=== PATIENT | male | born 1940 | race Caucasian/White ===

== ENCOUNTER → 2018-02-24 | Outpatient (CLI) | payer MEDICARE ==
[2018-02-24] MEDS: REGADENOSON 0.4 MG/5 ML DISP.SYRIN. IV (10:20)
== END | disposition home or self-care (01) ==
LOC: NM 11:11
DX: I25.89 Other forms of chronic ischemic heart disease (principal); I27.20 Pulmonary hypertension, unspecified; I07.1 Rheumatic tricuspid insufficiency
CPT/HCPCS: 78452; 93017; 93306; 96374; 96375; 96376; A9500; J2785

== ENCOUNTER → 2018-10-03 | Outpatient (CLI) | payer MEDICARE ==
--- NOTE | 2018-10-03 10:01 | KCIC ---
MR of the right shoulder TECHNIQUE: Routine multiplanar sequences are obtained. HISTORY: Right shoulder pain for one year. TECHNIQUE: Routine multiplanar sequences are obtained. FINDINGS: There is a full-thickness tear of the anterior supraspinatus tendon measuring about 15 mm AP diameter and 1 cm retraction. More generalized rotator cuff tendinosis. Partial subscapularis tendon tear. Mild rotator cuff muscle atrophy. Small subdeltoid bursal effusion. Evaluation of the labrum is limited due to motion degradation. Signal at and irregularity of the superior labrum compatible with degeneration or tear. Mild posterior labral tear. Biceps tendinosis with partial tearing. No acute fracture. No aggressive bone destruction. IMPRESSION: 1. Small full-thickness rotator cuff tear of the anterior supraspinatus tendon. Partial subscapularis tendon tear. 2. Biceps tendinosis with partial tear. 3. Limited labral evaluation due to motion, but there is evidence of degeneration/tearing of the posterior through superior labrum. Electronically signed by: Yifan Jackson MD (10/03/2018 9:58 AM) [facility]
== END | disposition home or self-care (01) ==
LOC: KCIC MRI 09-19 13:04
PROVIDERS: ATTEND Orthopaedic Surgery Sports Medicine
DX: M75.101 Unspecified rotator cuff tear or rupture of right shoulder, not specified as traumatic (principal); M75.21 Bicipital tendinitis, right shoulder; M62.511 Muscle wasting and atrophy, not elsewhere classified, right shoulder
CPT/HCPCS: 73221

== ENCOUNTER → 2019-03-03 | Outpatient (CLI) | payer MEDICARE ==
--- NOTE | 2019-03-03 15:45 | CARD ---
MR#: [id number] Date of Study: 03/03/2019 Ordering Physician: RASHAWN HENRY, Referring Physician: RASHAWN HENRY, Tech: Masha Farley APPROVED REPORT EXAM: Two-dimensional and M-mode echocardiogram with Doppler and color Doppler. Other Information Quality : GoodHR: 58bpm Rhythm : NSR INDICATION CAD RISK FACTORS Hypertension 2D DIMENSIONS RVDd3.4 (2.9-3.5cm)Left Atrium(2D)3.3 (1.6-4.0cm) IVSd1.0 (0.7-1.1cm)Aortic Root(2D)3.6 (2.0-3.7cm) LVDd5.2 (3.9-5.9cm)LVOT Diameter2.1 (1.8-2.4cm) PWd1.1 (0.7-1.1cm)LVDs3.0 (2.5-4.0cm) FS (%) 41.7 %SV94.1 ml Aortic Valve AoV Peak Leonardo.118.8cm/sAoV VTI22.8cm AO Peak GR.5.6mmHgLVOT Peak Leonardo.96.2cm/s LVOT VTI 21.10cmAO Mean GR.3mmHg IVETH (VMAX)2.95wt4BQA (VTI)3.14cm2 Mitral Valve MV E Arilnnjo57.0cm/sMV DECEL CZSN572jv MV A Gtwqwrwc05.0cm/sMV PBV945sh E/A Ratio0.8MVA (PHT)2.00cm2 TDI E/Lateral E'11.3E/Medial E'14.0 Pulmonary Valve PV Peak Efsfbvaf83.1cm/sPV Peak Grad.3mmHg Tricuspid Valve TR P. Czvvvbma894ou/sRAP OQRJERVF9akIf TR Peak Gr.83uzLjRVKS91llOo Pulmonary Vein S1 Jtupxpjs77.3cm/sD2 Zowaxnav53.2cm/s PVa xmpyhcsw430krjn LEFT VENTRICLE The left ventricle is normal size. There is borderline concentric left ventricular hypertrophy. The l eft ventricular systolic function is normal and the ejection fraction is within normal range. The Eje ction Fraction is 55-60%. There is normal LV segmental wall motion. Transmitral Doppler flow pattern is Grade I-abnormal relaxation pattern. RIGHT VENTRICLE The right ventricle is normal size. There is normal right ventricular wall thickness. The right ventr icular systolic function is normal. ATRIA The left atrium size is normal. The right atrium size is normal. The atrial septum is aneurysmal. AORTIC VALVE The aortic valve is thickened but opens well. Doppler and Color Flow revealed no significant aortic r egurgitation. There is no significant aortic valvular stenosis. MITRAL VALVE The mitral valve is normal in structure and function. There is no evidence of mitral valve prolapse. There is no mitral valve stenosis. Doppler and Color-flow revealed trace to mild mitral regurgitation . TRICUSPID VALVE The tricuspid valve is normal in structure and function. Doppler and Color Flow revealed trace to mil d tricuspid regurgitation with an estimated PAP of 26 mmHg. There is no tricuspid valve stenosis. PULMONIC VALVE The pulmonic valve is not well visualized. Doppler and Color Flow revealed no pulmonic valvular regur gitation. GREAT VESSELS The aortic root is normal in size. The IVC was not well visualized. PERICARDIAL EFFUSION There is no evidence of significant pericardial effusion. Critical Notification Critical Value: No <Conclusion> The left ventricle is normal size. The left ventricular systolic function is normal and the ejection fraction is within normal range. The Ejection Fraction is 55-60%. There is borderline concentric left ventricular hypertrophy. There is no significant aortic valvular stenosis. Doppler and Color Flow revealed no significant aortic regurgitation. Doppler and Color-flow revealed trace to mild mitral regurgitation. Doppler and Color Flow revealed trace to mild tricuspid regurgitation with an estimated PAP of 26 mmH g. Signed by : Maciej Spears MD Electronically Approved : 03/03/2019 15:45:03
== END | disposition home or self-care (01) ==
LOC: ECHO 13:53
PROVIDERS: ATTEND Internal Medicine Cardiovascular Disease
DX: I08.1 Rheumatic disorders of both mitral and tricuspid valves (principal); I25.10 Atherosclerotic heart disease of native coronary artery without angina pectoris; I10 Essential (primary) hypertension
CPT/HCPCS: 93306

== ENCOUNTER → 2019-09-21 | Outpatient (CLI) | payer MEDICARE ==
[~2019-09-21] MED LIST: REGADENOSON 0.4 MG/5 ML DISP.SYRIN. IV ONE
--- NOTE | 2019-09-21 13:23 | RAD ---
MR#: [id number] Date of Study: 09/21/2019 Ordering Physician: RASHAWN HENRY, Referring Physician: DIONY RAMEY Tech: RONNIE Shipman, ARRT (R) (N) APPROVED REPORT Test Type: Pharmacological Stress Nurse/Tech: Efrain Jc RN Test Indications: CAD Cardiac History: Stents 10 yrs ago, HTN, See EMR. Medications: See EMR. Medical History: See EMR. Resting ECG: SR Resting Heart Rate: 60 bpm Resting Blood Pressure: 141/74mmHg Pretest Chest Pain: No chest pain Nurse/Tech Notes Lungs CTA, Heart tones regular. Consent: The procedure was explained to the patient in lay terms. Informed consent was witnessed. [place] eout was entered into [employer]. History and Stress Test performed by RT Selene (R) (N) Pharm. Details Pharmacologic stress testing was performed using 0.4mg per 5ml of regadenoson given intravenously ove r 7-10 seconds. Stress Symptoms No chest pain or symptoms. POST EXERCISE Reason for Termination: Infusion complete Max HR: 84 bpm Max Blood Pressure: 136/61mmHg Blood Pressure response to exercise: Normal blood pressure response during stress. Heart Rate response to exercise: WNL Chest Pain: No. Arrhythmia: No. ST Change: No. INTERPRETATION Stress EKG Conclusion: Baseline EKG showed sinus rhythm. No ischemic changes at peak stress. No arr hythmias. Imaging Protocol IMAGE PROTOCOL: Rest Tc-99m/stress Tc-99m 1 day Rest: Stress: Viability: Radiopharm.Tc99m WbwnbdmnxTx02z Sestamibi Vwtn95rEr 33mCi Img Date 09/21/2019 09/21/2019 Inj-Img Bgab21oyj. 60min. Rest Admin Site:IV - Right AntecubitalAdministrator:RT Selene (R)(N) Stress Admin Site: IV - Right AntecubitalAdministrator: RT Selene (R)(N) STRESS DATA End Diast. Vol.82.0mlAv. Heart Rate60.0bpm End Syst. Vol.22.0mlCO Index BSA3.6L/min Myocardial Loiv759.0gEject. Wzcmkipj99.0% Stress Rates Pk. Fill Rate2.43EDV/secLVtime Pk. Fill 294.38msec Pk. Empty Rate3.55ESV/secLVtime Pk. Rqyii158.21msec 1/3 Pk. Fill1.07EDV/sec Stress Scores Regional WT0.00Summed WT2.00 Regional WM0.00Summed WM1.00 Study quality was good. Left Ventricular size was Normal at Rest and Stress. Lung uptake was . Left Ventricular ejection fraction is 73%. The rest and stress images show normal perfusion, normal contraction and thickening. LV Perf. Quant 17 Seg. SSS0.00 17 Seg. SRS0.00 17 Seg. SDS0.00 Stress Defect Extent (% LAD)0.00Rest Defect Extent (% LAD)0.00Rev. Defect Extent (% LAD)0.00 Stress Defect Extent (% LCX) 0.00Rest Defect Extent (% LCX)0.00Rev. Defect Extent (% LCX)0.00 Stress Defect Extent (% RCA)0.00Rest Defect Extent (% RCA)0.00Rev. Defect Extent (% RCA)0.00 Stress Defect Extent (% SHAY)0.00Rest Defect Extent (% SHAY)0.00Rev. Defect Extent (% SHAY)0.00 Conclusion 1. Regadenoson cardioisotope stress test did not show any evidence of ischemia or infarct. 2. Normal left ventricular systolic function with ejection fraction calculated at 73%. 3. Low risk for cardiac events. Signed by : Rashawn Henry, Electronically Approved : 09/21/2019 13:22:35
== END | disposition home or self-care (01) ==
LOC: NM 09:12
PROVIDERS: ATTEND Internal Medicine Cardiovascular Disease
DX: I25.10 Atherosclerotic heart disease of native coronary artery without angina pectoris (principal); I10 Essential (primary) hypertension; Z95.5 Presence of coronary angioplasty implant and graft
CPT/HCPCS: 78452; 93017; A9500; J2785

== ENCOUNTER → 2020-04-04 | Outpatient (CLI) | payer MEDICARE ==
--- NOTE | 2020-04-05 09:08 | CARD ---
MR#: [id number] Date of Study: 04/04/2020 Ordering Physician: RASHAWN HENRY, Referring Physician: RASHAWN HENRY, Tech: Masha Farley APPROVED REPORT EXAM: Two-dimensional and M-mode echocardiogram with Doppler and color Doppler. Other Information Quality : AverageHR: 55bpm INDICATION Cardiac Disease: CAD RISK FACTORS Hypertension Hyperlipidemia Diabetes 2D DIMENSIONS RVDd3.9 (2.9-3.5cm)Left Atrium(2D)3.0 (1.6-4.0cm) IVSd1.1 (0.7-1.1cm)Aortic Root(2D)3.4 (2.0-3.7cm) LVDd4.5 (3.9-5.9cm)LVOT Diameter2.1 (1.8-2.4cm) PWd1.0 (0.7-1.1cm)LVDs2.9 (2.5-4.0cm) LVEF(%)59.0 (>50%) Aortic Valve AoV Peak Leonardo.119.5cm/sAoV VTI27.3cm AO Peak GR.5.7mmHgLVOT Peak Leonardo.89.0cm/s LVOT VTI 20.09cmAO Mean GR.3mmHg Mitral Valve MV E Panqqili04.4cm/sMV DECEL WIAF249ib MV A Xsiypsks24.5cm/sMV E Mean Gr.1mmHg MV TOI45ivT/A Ratio0.7 MVA (PHT)2.26cm2 TDI E/Lateral E'8.0E/Medial E'10.1 Pulmonary Valve PV Peak Metvpmlw29.5cm/sPV Peak Grad.2mmHg Tricuspid Valve TR P. Yimgvlou608fe/sRAP DLTOPUDX1isYf TR Peak Gr.00thXdYFFT57iwGj Pulmonary Vein S1 Dtmtbnhq81.2cm/sD2 Bweiqgud38.9cm/s PVa mahuwecz519dbdo LEFT VENTRICLE The left ventricle is normal size. There is mild concentric left ventricular hypertrophy. The left ve ntricular systolic function is normal and the ejection fraction is within normal range. LV ejection f raction is 55-60%. There is normal LV segmental wall motion. RIGHT VENTRICLE The right ventricle is normal size. The right ventricular systolic function is normal. ATRIA The left atrium size is normal. The right atrium size is normal. The interatrial septum is intact wit h no evidence for an atrial septal defect or patent foramen ovale as noted on 2-D or Doppler imaging. AORTIC VALVE The aortic valve is thickened but opens well. Doppler and Color Flow revealed no significant aortic r egurgitation. Calculated aortic valve area is 2.58 cm2 with maximum pressure gradient of 6 mmHg and m narendra pressure gradient of 4 mmHg. There is no significant aortic valvular stenosis. MITRAL VALVE The mitral valve is normal in structure and function. There is no evidence of mitral valve prolapse. There is no mitral valve stenosis. Doppler and Color-flow revealed trace mitral regurgitation. TRICUSPID VALVE The tricuspid valve is normal in structure and function. Doppler and Color Flow revealed trace tricus pid regurgitation with an estimated PAP of 25 mmHg. There is no tricuspid valve stenosis. PULMONIC VALVE The pulmonic valve is not well visualized. Doppler and Color Flow revealed no pulmonic valvular regur gitation. GREAT VESSELS The aortic root is normal in size. The IVC was not visualized. PERICARDIAL EFFUSION There is no evidence of significant pericardial effusion. Critical Notification Critical Value: No <Conclusion> The left ventricle is normal size. The left ventricular systolic function is normal and the ejection fraction is within normal range. LV ejection fraction is 55-60%. There is mild concentric left ventricular hypertrophy. Doppler and Color Flow revealed no significant aortic regurgitation. There is no significant aortic valvular stenosis. Doppler and Color-flow revealed trace mitral regurgitation. Doppler and Color Flow revealed trace tricuspid regurgitation with an estimated PAP of 25 mmHg. Signed by : Maciej Spears MD Electronically Approved : 04/05/2020 09:08:04
== END | disposition home or self-care (01) ==
LOC: ECHO 10:11
PROVIDERS: ATTEND Internal Medicine Cardiovascular Disease
DX: I25.10 Atherosclerotic heart disease of native coronary artery without angina pectoris (principal); I51.7 Cardiomegaly
CPT/HCPCS: 93306

== ENCOUNTER → 2020-10-15 | Outpatient (CLI) | payer MEDICARE ==
--- NOTE | 2020-10-15 13:51 | RAD ---
MR#: [id number] Date of Study: 10/15/2020 Ordering Physician: RASHAWN HENRY, Referring Physician: DIONY RAMEY Tech: RONNIE Shipman, MAULIK (R) (N) APPROVED REPORT Test Type: Pharmacological Stress Nurse/Tech: Monica Conn R.N. Test Indications: CAD Cardiac History: PTCA, CAD, Medications: See Electronic Medical Record Medical History: See Electronic Medical Record Resting ECG: SR Resting Heart Rate: 63 bpm Resting Blood Pressure: 125/70mmHg Pretest Chest Pain: No chest pain Nurse/Tech Notes S1S2, lungs CTA Consent: The procedure was explained to the patient in lay terms. Informed consent was witnessed. [place] eout was entered into [employer]. History and Stress Test performed by RONNIE Shipman, MAULIK (R) (N) Pharm. Details Pharmacologic stress testing was performed using 0.4mg per 5ml of regadenoson given intravenously ove r 7-10 seconds. Stress Symptoms slight SOA, POST EXERCISE Reason for Termination: Infusion complete Max HR: 94 bpm Max Blood Pressure: 146/69mmHg Blood Pressure response to exercise: Normal blood pressure response during stress. Heart Rate response to exercise: wnl Chest Pain: No. Arrhythmia: No. ST Change: No. INTERPRETATION Stress EKG Conclusion: Baseline EKG showed sinus rhythm. No ischemic changes at peak stress. No arr hythmias. Imaging Protocol IMAGE PROTOCOL: Rest Tc-99m/stress Tc-99m 1 day Rest: Stress: Viability: Radiopharm.Tc99m KcbgvbnfuAp62k Sestamibi Mteh31vJf 33mCi Img Date 10/15/2020 10/15/2020 Inj-Img Kzrt13kjg. 60min. Rest Admin Site:IV - Left AntecubitalAdministrator:JACY Horton Stress Admin Site: IV - Left AntecubitalAdministrator: JACY Horton STRESS DATA End Diast. Vol.67.0mlLVEDV index BSA36.0ml End Syst. Vol.15.0mlLVESV index BSA8.0ml Myocardial Qwlf007.0gEject. Jykuczns23.0% Stress Scores Regional WT0.00Summed WT5.00 Regional WM0.00Summed WM0.00 Study quality was good. Left Ventricular size was Normal at Rest and Stress. Lung uptake was . Left Ventricular ejection fraction is 72%. The rest and stress images show normal perfusion, normal contraction and thickening. LV Perf. Quant 17 Seg. SSS0.00 17 Seg. SRS2.00 17 Seg. SDS0.00 Stress Defect Extent (% LAD)0.00Rest Defect Extent (% LAD)0.00Rev. Defect Extent (% LAD)0.00 Stress Defect Extent (% LCX) 0.00Rest Defect Extent (% LCX)15.00Rev. Defect Extent (% LCX)0.00 Stress Defect Extent (% RCA)0.00Rest Defect Extent (% RCA)10.00Rev. Defect Extent (% RCA)0.00 Stress Defect Extent (% SHAY)0.00Rest Defect Extent (% SHAY)5.70Rev. Defect Extent (% SHAY)0.00 Conclusion 1. Regadenoson cardioisotope stress test did not show any evidence of ischemia or infarct. 2. Normal left ventricular systolic function with ejection fraction calculated at 72%. 3. Low risk for cardiac events. Signed by : Rashawn Henry, Electronically Approved : 10/15/2020 13:51:27
== END ==
LOC: NM 09:07
PROVIDERS: ATTEND Internal Medicine Cardiovascular Disease
DX: I25.10 Atherosclerotic heart disease of native coronary artery without angina pectoris (principal)
CPT/HCPCS: 78452; 93017; A9500; J2785

== ENCOUNTER → 2021-04-23 | Outpatient (CLI) | payer MEDICARE ==
--- NOTE | 2021-04-23 13:58 | CARD ---
MR#: [id number] Date of Study: 04/23/2021 Ordering Physician: RASHAWN HENRY, Referring Physician: RASHAWN HENRY, Tech: Masha Farley, [facility] APPROVED REPORT EXAM: Two-dimensional and M-mode echocardiogram with Doppler and color Doppler. Other Information Quality : AverageHR: 60bpm INDICATION Cardiac Disease: CAD RISK FACTORS Hypertension 2D DIMENSIONS Left Atrium(2D)3.2 (1.6-4.0cm)IVSd1.0 (0.7-1.1cm) Aortic Root(2D)3.6 (2.0-3.7cm)LVDd4.6 (3.9-5.9cm) LVOT Diameter2.2 (1.8-2.4cm)PWd1.0 (0.7-1.1cm) LVDs3.0 (2.5-4.0cm)FS (%) 34.8 % SV63.5 mlLVEF(%)64.0 (>50%) Aortic Valve AoV Peak Leonardo.131.8cm/sAoV VTI24.8cm AO Peak GR.6.9mmHgLVOT Peak Leonardo.97.6cm/s LVOT VTI 23.42cmAO Mean GR.3mmHg IVETH (VMAX)2.45yg8DVZ (VTI)3.55cm2 Mitral Valve MV E Ftqpwzck56.8cm/sMV DECEL LEQM744tz MV A Cvorelbr99.9cm/sMV E Mean Gr.1mmHg MV UCQ087zkE/A Ratio0.8 MVA (PHT)2.20cm2 TDI E/Lateral E'8.9E/Medial E'10.8 Pulmonary Valve PV Peak Pxuirrnm87.9cm/sPV Peak Grad.3mmHg Tricuspid Valve TR P. Bzkqtfee795hw/sTR Peak Gr.30mmHg Pulmonary Vein S1 Ggzxcxvx12.6cm/sD2 Mqzkswtm27.2cm/s PVa jbhcvoge027wuaz LEFT VENTRICLE The Left Ventricle is borderline dilated. There is mild concentric left ventricular hypertrophy. The left ventricular systolic function is normal and the ejection fraction is within normal range. LV eje ction fraction of 55 to 60%. There is normal LV segmental wall motion. RIGHT VENTRICLE The right ventricle is normal size. There is normal right ventricular wall thickness. The right ventr icular systolic function is normal. ATRIA The left atrium size is normal. The right atrium size is normal. AORTIC VALVE The aortic valve is normal in structure and function. Doppler and Color Flow revealed no significant aortic regurgitation. There is no significant aortic valvular stenosis. Calculated aortic valve area is 4.16 cm2 with maximum pressure gradient of 9 mmHg and mean pressure gradient of 4 mmHg. MITRAL VALVE The mitral valve is normal in structure and function. There is no evidence of mitral valve prolapse. There is no mitral valve stenosis. Doppler and Color-flow revealed trace mitral regurgitation. TRICUSPID VALVE The tricuspid valve is normal in structure and function. Doppler and Color Flow revealed trace tricus pid regurgitation with an estimated PAP of 33 mmHg. There is no tricuspid valve stenosis. PULMONIC VALVE The pulmonary valve is normal in structure and function. Doppler and Color Flow revealed no pulmonic valvular regurgitation. GREAT VESSELS The aortic root is normal in size. The ascending aorta is normal in size measuring 3.7 cm. The IVC is normal in size and collapses >50% with inspiration. PERICARDIAL EFFUSION There is no evidence of significant pericardial effusion. Critical Notification Critical Value: No <Conclusion> The Left Ventricle is borderline dilated. The left ventricular systolic function is normal and the ejection fraction is within normal range. LV ejection fraction of 55 to 60%. There is mild concentric left ventricular hypertrophy. Doppler and Color Flow revealed no significant aortic regurgitation. There is no significant aortic valvular stenosis. Doppler and Color-flow revealed trace mitral regurgitation. Doppler and Color Flow revealed trace tricuspid regurgitation with an estimated PAP of 33 mmHg. Signed by : Maciej Spears MD Electronically Approved : 04/23/2021 13:58:39
== END ==
LOC: ECHO 09:51
PROVIDERS: ATTEND Internal Medicine Cardiovascular Disease
DX: I51.7 Cardiomegaly (principal); I25.10 Atherosclerotic heart disease of native coronary artery without angina pectoris; I10 Essential (primary) hypertension
CPT/HCPCS: 93306